=== PATIENT | male | born 1970 | race Two or more races ===

== ENCOUNTER 2017-10-21 16:59 | Emergency (ER) | payer OTHER ==
[~2017-10-21] VITALS: Ht 162.6 cm; Wt 75.3 kg
[2017-10-21 17:30] VITALS: BP 162/104
== END 2017-10-21 21:29 | disposition home or self-care (01) ==
LOC: ER 17:02
DX: M54.2 Cervicalgia (principal); R51 Headache; M62.838 Other muscle spasm; V49.49XA Driver injured in collision with other motor vehicles in traffic accident, initial encounter; Y93.89 Activity, other specified; Y99.8 Other external cause status; Y92.488 Other paved roadways as the place of occurrence of the external cause
CPT/HCPCS: 70450; 72125

== ENCOUNTER 2023-06-09 06:38 | Inpatient (IN) | payer OTHER ==
[~2023-06-09] VITALS: Ht 162.6 cm; Wt 81.4 kg
[2023-06-09 09:54] LABS: Basophils # (auto) 0.1 10 ^3/uL (0-0.2); Basophils % (auto) 0.4 % (0.0-2.0); Eosinophils # (auto) 0 10 ^3/uL (0-0.8); Eosinophils % (auto) 0.1 % (0.0-7.0); Hematocrit 44.9 % (41.0-53.0); Hemoglobin 15.1 g/dL (13.5-17.5); Lymphocytes # (auto) 1.1 10 ^3/uL (0.4-5.4); Lymphocytes % (auto) 8.7 % (10.0-50.0); Mean Corpuscular Hemoglobin 32.8 pg (28.0-32.0); Mean Corpuscular Hgb Conc. 33.7 g/dL (32.0-36.0); Mean Corpuscular Volume 97.5 fL (80.0-100.0); Monocytes # (auto) 0.9 10 ^3/uL (0-1.3); Monocytes % (auto) 7.1 % (0.0-12.0); Neutrophils # (auto) 10.4 10 ^3/uL (1.6-8.6); Neutrophils % (auto) 83.7 % (37.0-80.0); Red Blood Cells 4.61 10^6/uL (4.5-5.90); Red Cell Distribution Width 12.4 % (11.8-14.3); White Blood Cell 12.4 10^3/uL (4.4-10.8)
[2023-06-09 10:02] LABS: Chloride 105 mmol/L (98-107); Sodium 138 mmol/L (136-145)
[2023-06-09 10:03] LABS: Anion Gap 9 (5-15); Calcium 8.8 mg/dL (8.5-10.1); Carbon Dioxide 24 mmol/L (20-30)
[2023-06-09 10:08] LABS: BUN/Creatinine Ratio 11.7 (10.0-20.0); Blood Urea Nitrogen 9 mg/dL (9-23); Glucose 103 mg/dL (74-106)
[2023-06-09] MEDS ORDERED: cefTRIAXone 1GM/50ML D5W 50 ML IV SCH (11:45)
[2023-06-09] MEDS ORDERED: KETOROLAC TROMETH 30 MG/ML 1ML VIAL IV PRN (12:15)
[2023-06-09] MEDS: SODIUM CHLORIDE 0.9% 1,000 ML IV SCH (12:15)
[2023-06-09] MEDS ORDERED: ACETAMINOPHEN 325 MG TAB PO PRN (12:15)
[2023-06-09] MEDS: cefTRIAXone 1GM/50ML D5W 0 ML IV ONE (12:49)
[2023-06-09] MEDS: HYDROcodone-ACET 5/325MG TAB PO ONE (12:51)
[2023-06-09] MEDS: SODIUM CHLORIDE 0.9% 1,000 ML IV ONE (12:52)
[2023-06-09] MEDS: HYDROcodone-ACET 5/325MG TAB PO PRN (18:59)
[2023-06-09 22:21] VITALS: PULSE 76; RESP 20; O2SAT 97
[2023-06-09] MEDS: DOXYCYCLINE 100 MG TAB/CAP PO SCH (22:26)
[2023-06-09 22:45] VITALS: BP 132/87; PULSE 68; RESP 14; RESP 16; TEMP 98.4; O2SAT 97
[2023-06-09] MEDS: KETOROLAC TROMETH 30 MG/ML 1ML VIAL IV PRN (23:01)
[2023-06-10 05:00] VITALS: BP 135/84; PULSE 71; RESP 16; TEMP 98.5; O2SAT 95
[2023-06-10 06:56] LABS: Basophils # (auto) 0 10 ^3/uL (0-0.2); Basophils % (auto) 0.3 % (0.0-2.0); Eosinophils # (auto) 0 10 ^3/uL (0-0.8); Eosinophils % (auto) 0.5 % (0.0-7.0); Hematocrit 37.6 % (41.0-53.0); Hemoglobin 13.2 g/dL (13.5-17.5); Lymphocytes # (auto) 1.6 10 ^3/uL (0.4-5.4); Lymphocytes % (auto) 18.3 % (10.0-50.0); Mean Corpuscular Volume 97.2 fL (80.0-100.0); Monocytes # (auto) 0.9 10 ^3/uL (0-1.3); Monocytes % (auto) 10.2 % (0.0-12.0); Neutrophils # (auto) 6.1 10 ^3/uL (1.6-8.6); Neutrophils % (auto) 70.7 % (37.0-80.0); Nucleated Red Blood Cells % 0.1 %; Red Blood Cells 3.87 10^6/uL (4.5-5.90); Red Cell Distribution Width 12.3 % (11.8-14.3); White Blood Cell 8.6 10^3/uL (4.4-10.8)
[2023-06-10 07:04] LABS: Alanine Aminotransferase 17 U/L (7-40); Alkaline Phosphatase 69 U/L (46-116); Anion Gap 5 (5-15); BUN/Creatinine Ratio 8.9 (10.0-20.0); Blood Urea Nitrogen 7 mg/dL (9-23); Carbon Dioxide 25 mmol/L (20-30); Chloride 108 mmol/L (98-107); Glucose 99 mg/dL (74-106); Potassium 3.7 mmol/L (3.5-5.1); Sodium 138 mmol/L (136-145)
[2023-06-10 07:05] LABS: Albumin 3.6 g/dL (3.2-4.8); Aspartate Aminotransferase 16 U/L (13-40); Bilirubin, Total 1.1 mg/dL (0.2-1.0); Total Protein 5.6 g/dL (5.7-8.2)
[2023-06-10 09:00] VITALS: BP_SYST 127; BP_SYST 136; BP_DIAS 73; BP_DIAS 87; PULSE 73; RESP 18; TEMP 97.4; O2SAT 98
[2023-06-10] MEDS: ENOXAPARIN SOD 40 MG/0.4 ML SYRINGE SC SCH (11:22)
[2023-06-10] MEDS: cefTRIAXone 1GM/50ML D5W 50 ML IV SCH (11:22)
[2023-06-10 13:00] VITALS: BP 121/75; PULSE 80; RESP 20; TEMP 98.3; O2SAT 95
[2023-06-10 17:00] VITALS: BP 142/80; PULSE 72; RESP 18; TEMP 99.3; O2SAT 96
[2023-06-10 20:00] VITALS: BP 135/73; PULSE 89; RESP 18; TEMP 99.1; O2SAT 95
[2023-06-10 22:00] VITALS: BP 135/73; PULSE 89; RESP 18; TEMP 99.1; O2SAT 95
[2023-06-11] VITALS (8 sets, daily range): BP systolic 99–144; BP diastolic 47–93; PULSE 68–88; RESP 17–19; TEMP 98–98.5; O2SAT 94–96
[2023-06-12 09:00] VITALS: BP 139/99; PULSE 68; RESP 19; TEMP 98.4; O2SAT 94
[2023-06-12] MEDS ORDERED: DOXY-346 PO (11:45)
[2023-06-12] MEDS ORDERED: TRAM50TA2 PO (11:45)
[2023-06-12 13:00] VITALS: BP 132/84; PULSE 91; RESP 20; TEMP 98.6; O2SAT 95
[2023-06-12 13:46] VITALS: TEMP 36.9
== END 2023-06-12 16:10 | disposition home or self-care (01) | DRG 728 ==
LOC: ER 06:38 → WEST WING 12:13 → OVERFLOW 12:13 → WEST WING 22:43
PROVIDERS: ADMIT Nurse Practitioner Family; ATTEND Family Medicine
DX: N45.1 Epididymitis (principal); F10.10 Alcohol abuse, uncomplicated; K43.9 Ventral hernia without obstruction or gangrene; D72.829 Elevated white blood cell count, unspecified; Y90.9 Presence of alcohol in blood, level not specified
CPT/HCPCS: 36415; 76870; 80048; 80053; 85025; G0378; J1885